=== PATIENT | male | born 1945 | race African-American/Black ===

== ENCOUNTER 2017-03-21 00:31 | Emergency (ER) | payer MEDICARE ==
[2017-03-21 01:37] LABS: BASOPHILS 0.6 % (0-2); EOSINOPHILS 3.3 % (0-7); HEMOGLOBIN 13.8 g/dL (13.5-17.5); IMMATURE GRANULOCYTES 0.2 % (0-5); LYMPHOCYTES 24.2 % (15-50); MCH 28.1 pg (26.0-34.0); MCHC 33.7 g/dL (31.0-37.0); MCV 83.5 fL (80.0-100.0); MEAN PLATELET VOLUME 9.5 fL (7.4-10.4); MONOCYTES 11.4 % (2-11); NEUTROPHILS 60.3 % (40-80); PLATELET COUNT 228 10x3/uL (130-400); RBC 4.91 10x6/uL (4.20-6.10); RDW 14.5 % (11.5-14.5); WBC 5.1 10x3/uL (4.8-10.8)
[2017-03-21 01:44] LABS: CALC OSMOLALITY 274 mosm/kg (275-300); CALCIUM 8.3 mg/dL (8.5-10.1); CHLORIDE - SERUM 103 mmol/L (98-107); GLUCOSE 135 mg/dL (74-106); SODIUM 137 mmol/L (136-145); UREA NITROGEN 9 mg/dL (7-18); eGFR NON AFRICAN AMERICAN 78 mL/min (90-120)
== END 2017-03-21 03:05 | disposition home or self-care (01) ==
LOC: D.ER 00:31
PROVIDERS: Emergency Medicine
DX: R42 Dizziness and giddiness (principal)

== ENCOUNTER 2021-02-02 03:15 | Emergency (ER) | payer MEDICARE ==
[~2021-02-02] VITALS: Ht 177.8 cm; Wt 125.0 kg
[2021-02-02 03:16] VITALS: Ht 177.8 cm; Wt 125.0 kg
[2021-02-02] MEDS ORDERED: BAYER CHEWABLE81 MG PO (03:18)
[2021-02-02] MEDS ORDERED: FISH OIL 1,0001 CA1 PO (03:18)
[2021-02-02] MEDS ORDERED: MECLIZINE HCL25 MG PO (04:42)
[2021-02-02 05:20] VITALS: BP 149/75
== END 2021-02-02 05:21 | disposition home or self-care (01) ==
LOC: D.ER 03:15
DX: H81.10 Benign paroxysmal vertigo, unspecified ear (principal)